=== PATIENT | female | born 1945 | race Caucasian/White ===

== ENCOUNTER 2018-03-05 18:13 | Emergency (ER) | payer MEDICARE, OTHER ==
[2018-03-05] MEDS ORDERED: Lidocaine 1% (PF) 30 ML VIAL ONE (18:57)
--- NOTE | 2018-03-05 19:16 | RAD ---
LEFT ELBOW FOUR VIEWS: 03/05/18 HISTORY: Elbow injury. Bones appear slightly demineralized. There is no signs of fracture, dislocation or joint effusion. IMPRESSION: No evidence of fracture. POS: [facility]
[2018-03-05] MEDS ORDERED: Bacitracin Zinc 1 Packet ONE (21:01)
== END 2018-03-05 21:06 | disposition home or self-care (01) ==
LOC: ERS 18:13
DX: S51.012A Laceration without foreign body of left elbow, initial encounter (principal); E78.5 Hyperlipidemia, unspecified; I10 Essential (primary) hypertension; Z79.899 Other long term (current) drug therapy; Z79.82 Long term (current) use of aspirin; W19.XXXA Unspecified fall, initial encounter
CPT/HCPCS: 12034; J2001

== ENCOUNTER 2019-09-20 08:42 | Outpatient (CLI) | payer MEDICARE, OTHER ==
--- NOTE | 2019-09-21 08:03 | RAD ---
2 view chest: [09/20/2019] Comparison:12/31/2016 HISTORY: Shortness of breath/dyspnea FINDINGS: Heart and mediastinal contours are grossly unremarkable. No pneumothorax or pleural fluid. No focal consolidation or alveolar edema. The lungs are hyperinflated and there is mild stable linear interstitial density. Multilevel mid thoracic spine disc space narrowing with degenerative end plate change and anterior osteophyte formation noted, stable as well. IMPRESSION: No acute findings. Stable appearance of the chest.
== END 2019-09-20 08:43 | disposition home or self-care (01) ==
LOC: RAD 08:42
PROVIDERS: ATTEND Internal Medicine Critical Care Medicine
DX: R06.00 Dyspnea, unspecified (principal)
CPT/HCPCS: 71046